=== PATIENT | male | born 1990 | race Caucasian/White ===

== ENCOUNTER 2017-09-18 13:43 | Emergency (ER) | payer SELFPAY ==
[~2017-09-18] VITALS: Ht 185.4 cm; Wt 79.4 kg
[2017-09-18] MEDS ORDERED: Methocarbamol 750mg tab ORAL ONE (14:15)
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
[2017-09-18] MEDS ORDERED: ROBAXIN-750750 MG PO (15:38)
[2017-09-18 16:44] VITALS: BP 110/68
[2017-09-18 16:46] VITALS: BP 110/68
== END 2017-09-18 16:46 | disposition home or self-care (01) ==
LOC: EMR 14:25
DX: M54.9 Dorsalgia, unspecified (principal); W19.XXXA Unspecified fall, initial encounter; Y92.89 Other specified places as the place of occurrence of the external cause
CPT/HCPCS: 99283